=== PATIENT | female | born 1975 | race Caucasian/White ===

== ENCOUNTER → 2021-03-20 | Outpatient (CLI) | payer OTHER | LOC: MAMO 02-13 15:30 | DX: Z12.31 Encounter for screening mammogram for malignant neoplasm of breast (principal) | CPT/HCPCS: 77063; 77067 ==

== ENCOUNTER → 2021-04-25 | Outpatient (CLI) | payer OTHER | LOC: MAMO 13:31 | DX: R92.8 Other abnormal and inconclusive findings on diagnostic imaging of breast (principal) | CPT/HCPCS: 76642-LT; 77065; G0279 ==

== ENCOUNTER → 2021-06-15 | Outpatient (CLI) | payer OTHER | LOC: US 05-15 10:00 | DX: N60.32 Fibrosclerosis of left breast (principal) | CPT/HCPCS: 76098; 77065 ==

== ENCOUNTER → 2021-11-23 | Outpatient (CLI) | payer OTHER | LOC: ECHO 12:36 | DX: I35.8 Other nonrheumatic aortic valve disorders (principal); I07.1 Rheumatic tricuspid insufficiency | CPT/HCPCS: ECHO; 93306 ==

== ENCOUNTER → 2022-02-22 | Outpatient (CLI) | payer OTHER | LOC: MAMO 10:30 | DX: R92.8 Other abnormal and inconclusive findings on diagnostic imaging of breast (principal) | CPT/HCPCS: 77066; G0279 ==